=== PATIENT | male | born 1950 | race Caucasian/White ===

== ENCOUNTER 2023-10-07 05:59 | Day surgery (SDC) | payer OTHER ==
[~2023-10-07] VITALS: Ht 166.4 cm; Wt 66.8 kg
[2023-10-07] MEDS ORDERED: LIDOCAINE 4% 50 ML SOLUTION TP ONE (06:00)
[2023-10-07] MEDS ORDERED: BENZOCAINE 20% 50 MCG/SPRAY 57 GM TP ONE (06:00)
[2023-10-07] MEDS ORDERED: LIDOCAINE 2% 11 ML JELLY TP ONE (06:00)
[2023-10-07] MEDS ORDERED: ALBUTEROL SULFATE 2.5 MG/0.5 ML NEB SOLUTION NEB ONE (06:00)
[2023-10-07] MEDS ORDERED: SODIUM CHLORIDE 0.9% 1,000 ML ONE (07:06)
[2023-10-07] MEDS: SODIUM CHLORIDE 0.9% 1,000 ML IV ONE (07:47)
[2023-10-07] MEDS ORDERED: FentaNYL CITRATE PF 100 MCG/2 ML VIAL ONE (07:58)
[2023-10-07] MEDS ORDERED: MIDAZOLAM HCL 2 MG/2 ML VIAL ONE (07:59)
[2023-10-07] MEDS ORDERED: FAMO20TA8 PO (08:44)
[2023-10-07] MEDS ORDERED: FLUT16H NASAL (08:44)
[2023-10-07] MEDS ORDERED: CETI10TA58 PO (08:44)
[2023-10-07] MEDS ORDERED: CHOL200059 PO (08:44)
[2023-10-07] MEDS ORDERED: PRED-729 PO (08:44)
[2023-10-07] MEDS ORDERED: ATOR40TA71 PO (08:44)
[2023-10-07] MEDS ORDERED: ALEN70TA80 PO (08:44)
[2023-10-07] MEDS ORDERED: PROM118S5 PO (08:44)
[2023-10-07] MEDS ORDERED: FLUT1AER IH (08:44)
[2023-10-07] MEDS ORDERED: SERT-438 PO (08:44)
[2023-10-07] MEDS ORDERED: TAMS0.4C94 PO (08:44)
[2023-10-07] MEDS ORDERED: MIRA25TA PO (08:44)
[2023-10-07] MEDS ORDERED: AZIT-103 PO (08:44)
[2023-10-07] MEDS ORDERED: FINA5TAB41 PO (08:44)
[2023-10-07 08:56] VITALS: PULSE 67; RESP 24; O2SAT 98
[2023-10-07] MEDS: MethylPREDNISolone SOD SUCC 125 MG/2 ML VIAL IVP ONE (09:43)
== END 2023-10-07 10:40 | disposition home or self-care (01) ==
LOC: SURGERY 05:59
PROVIDERS: ATTEND Internal Medicine Critical Care Medicine
DX: J38.4 Edema of larynx (principal); B37.0 Candidal stomatitis; Z90.49 Acquired absence of other specified parts of digestive tract; Z98.890 Other specified postprocedural states; Z79.899 Other long term (current) drug therapy; K76.0 Fatty (change of) liver, not elsewhere classified
CPT/HCPCS: 31623; 87206; 87101; 87220; 87070; 88108; 88305; 31624; 94640; 71045; 87015; J3010; J2250; J2930; Q9967; J7030; J7613; Z7610